=== PATIENT | female | born 1975 | race Caucasian/White ===

== ENCOUNTER 2016-10-05 14:35 | Emergency (ER) | payer BC ==
[2016-10-05 19:24] LABS: HEMOGLOBIN 12.2 gm/dl (12.3-15.3); RED BLOOD COUNT 3.82 M/UL (4.00-5.10); WHITE BLOOD COUNT 3.8 K/UL (4.5-11.0)
[2016-10-05 20:10] LABS: BUN/CREATININE RATIO 10 (0-10)
== END 2016-10-05 21:22 ==
LOC: ER1 14:35
PROVIDERS: Emergency Medicine
DX: K92.2 Gastrointestinal hemorrhage, unspecified (principal); R19.5 Other fecal abnormalities; N39.0 Urinary tract infection, site not specified; D69.6 Thrombocytopenia, unspecified; K74.60 Unspecified cirrhosis of liver; Z88.8 Allergy status to other drugs, medicaments and biological substances; Z90.49 Acquired absence of other specified parts of digestive tract; Z79.899 Other long term (current) drug therapy
CPT/HCPCS: 36415; 80053; 81001; 82140; 82272; 83605; 83690; 84484; 85025; 85610; 85730; 86850; 86900; 86901; 96372; 99283; J0696; J7030